=== PATIENT | female | born 1955 | race African-American/Black ===

== ENCOUNTER 2022-08-17 14:54 | Inpatient (IN) ==
[2022-08-17] MEDS ORDERED: HYDROmorphone 1 MG/1 ML SYRINGE IV STA (15:24)
[2022-08-17] MEDS ORDERED: ONDANSETRON 4 MG/2 ML VIAL IV STA (15:24)
[2022-08-17] MEDS ORDERED: AMPICILLIN/SULBACTAM 3,000 MG in SODIUM CHLORIDE 0.9% 100 ML IV STA (15:44)
[2022-08-17 16:13] LABS: Basophils % 0.1 % (0.0-0.8); Hematocrit 37.1 VOL% (35.7-47.0); Immature Granulocytes Absolute 0.22 #; Lymphocytes # 0.7 10*3/uL (1.4-4.0); Lymphocytes % 2.9 % (21.3-54.2); Mean Corpuscular HGB Conc 32.3 GM/DL (32-36); Mean Corpuscular Volume 75.9 FL (87-102); Mean Platelet Volume 10.1 FL (9.6-12.0); Monocytes # 0.8 10*3/uL (0.11-0.8); Monocytes % 3.7 % (1.7-12.7); Neutrophils % 92.3 % (38.7-73.9); Platelet Count 284 T/CUMM (130-400); Red Blood Count 4.89 MC/CUMM (3.8-5.5); Red Cell Distribution Width 13.7 % (9.3-17.3); White Blood Count 22.5 T/CUMM (4-12)
[2022-08-17 16:25] LABS: INR 1.1; PT Patient Result 12.4 SECS (10.1-12.1); Partial Thromboplastin Time 30.2 SECS (23.7-32.9)
[2022-08-17 16:33] LABS: Band Neutrophils 2 % (0-10); Hypochromia 1+; Lymphocytes 3 % (20-55); Total Cells Counted 100
[2022-08-17 16:34] LABS: Albumin 3.2 G/DL (3.4-5.0); Bilirubin,Total 5.5 MG/DL (0.20-1.00); Calcium 9.2 MG/DL (8.5-10.1); Osmolality,Calculated 277.4 MOS/KG (273-304); Platelet Estimate Adequate; Polychromasia Slight
[2022-08-17] MEDS ORDERED: AMPICILLIN/SULBACTAM 3,000 MG in SODIUM CHLORIDE 0.9% 100 ML IV SCH (17:30)
[2022-08-17] MEDS ORDERED: AMPICILLIN INJ 2,000 MG in SODIUM CHLORIDE 0.9% 100 ML IV SCH (17:30)
[2022-08-17] MEDS: SODIUM CHLORIDE 0.9% 1,000 ML IV SCH (17:32)
[2022-08-17] MEDS: FAMOTIDINE 20 MG/2 ML VIAL IV SCH (18:21)
[2022-08-17] MEDS: metroNIDAZOLE INJ 500 MG/100 ML PREMIX IV SCH (20:35)
[2022-08-17] MEDS: cefTRIAXone 1,000 MG in SODIUM CHLORIDE 0.9% 100 ML IV SCH (21:58)
[2022-08-18] MEDS: MORPHINE 2 MG/1 ML SYRINGE IV PRN ×2 (00:36→10:04)
[2022-08-18] MEDS: ONDANSETRON 4 MG/2 ML VIAL IV PRN ×2 (00:41→10:16)
[2022-08-18] MEDS: metroNIDAZOLE INJ 500 MG/100 ML PREMIX IV SCH ×3 (04:00→20:55)
[2022-08-18] MEDS: SODIUM CHLORIDE 0.9% 1,000 ML IV SCH ×3 (05:00→23:12)
[2022-08-18 05:22] LABS: Basophils % 0.1 % (0.0-0.8); Hematocrit 32.7 VOL% (35.7-47.0); Hemoglobin 10.6 GM/DL (12.0-16.0); Immature Granulocytes % 0.9 %; Immature Granulocytes Absolute 0.14 #; Lymphocytes # 0.6 10*3/uL (1.4-4.0); Lymphocytes % 3.7 % (21.3-54.2); Mean Corpuscular HGB Conc 32.4 GM/DL (32-36); Mean Corpuscular Volume 75.7 FL (87-102); Mean Platelet Volume 10.6 FL (9.6-12.0); Monocytes # 0.7 10*3/uL (0.11-0.8); Monocytes % 4.5 % (1.7-12.7); Neutrophils % 90.8 % (38.7-73.9); Platelet Count 218 T/CUMM (130-400); Red Blood Count 4.32 MC/CUMM (3.8-5.5); White Blood Count 16.1 T/CUMM (4-12)
[2022-08-18 05:48] LABS: Albumin 2.9 G/DL (3.4-5.0); Calcium 9.2 MG/DL (8.5-10.1); Osmolality,Calculated 278.5 MOS/KG (273-304); Potassium 3.6 MMOL/L (3.5-5.1); Total Protein 7.3 G/DL (6.4-8.2)
[2022-08-18 05:59] LABS: Anisocytosis 1+; Band Neutrophils 8 % (0-10); Lymphocytes 6 % (20-55); Platelet Estimate Normal; Total Cells Counted 100
[2022-08-18] MEDS ORDERED: ACETAMINOPHEN 325 MG TABLET PO PRN (07:49)
[2022-08-18] MEDS: lisinopriL 20 MG TABLET PO SCH (08:58)
[2022-08-18] MEDS: amLODIPine 5 MG TABLET PO SCH (08:58)
[2022-08-18] MEDS ORDERED: INDOMETHACIN SUPP 50 MG SUPP RECTAL ONE (09:59)
[2022-08-18] MEDS ORDERED: propofoL 200 MG/20 ML VIAL IV ONE (12:22)
[2022-08-18] MEDS ORDERED: LIDOCAINE 2% 5 ML VIAL ONE (12:22)
[2022-08-18] MEDS ORDERED: SEVOFLURANE 1 UNIT/15 MINUTE INH ONE ×2 (12:22→12:56)
[2022-08-18] MEDS ORDERED: ROCURONIUM 50 MG/5 ML VIAL IV ONE (12:22)
[2022-08-18] MEDS ORDERED: fentaNYL 100 MCG/2 ML VIAL ONE (12:22)
[2022-08-18] MEDS ORDERED: SUCCINYLCHOLINE 200 MG/10 ML VIAL ONE (12:22)
[2022-08-18] MEDS: LACTATED RINGERS 1,000 ML IV SCH (12:31)
[2022-08-18] MEDS ORDERED: PHENYLEPHRINE 1 MG/10 ML SYRINGE IV ONE (12:56)
[2022-08-18] MEDS ORDERED: HYDROmorphone 1 MG/1 ML SYRINGE IV PRN ×2 (15:16)
[2022-08-18] MEDS ORDERED: KETOROLAC 15 MG/1 ML VIAL IV PRN (15:16)
[2022-08-18] MEDS: FAMOTIDINE 20 MG/2 ML VIAL IV SCH (18:32)
[2022-08-18] MEDS: cefTRIAXone 1,000 MG in SODIUM CHLORIDE 0.9% 100 ML IV SCH (22:30)
[2022-08-19] MEDS: metroNIDAZOLE INJ 500 MG/100 ML PREMIX IV SCH ×3 (04:08→21:19)
[2022-08-19] MEDS: SODIUM CHLORIDE 0.9% 1,000 ML IV SCH ×2 (06:21→09:08)
[2022-08-19 07:24] LABS: Basophils % 0.4 % (0.0-0.8); Eosinophils % 0.1 % (0.00-10.9); Hematocrit 27.6 VOL% (35.7-47.0); Immature Granulocytes % 0.6 %; Immature Granulocytes Absolute 0.05 #; Lymphocytes % 13.2 % (21.3-54.2); Mean Corpuscular HGB Conc 32.6 GM/DL (32-36); Mean Corpuscular Volume 75.8 FL (87-102); Monocytes # 0.7 10*3/uL (0.11-0.8); Monocytes % 8.4 % (1.7-12.7); Neutrophils % 77.3 % (38.7-73.9); Platelet Count 169 T/CUMM (130-400); Red Blood Count 3.64 MC/CUMM (3.8-5.5); Red Cell Distribution Width 14.2 % (9.3-17.3); White Blood Count 7.7 T/CUMM (4-12)
[2022-08-19 07:37] LABS: Albumin 2.5 G/DL (3.4-5.0); Bilirubin,Total 2.9 MG/DL (0.20-1.00); Calcium 8.6 MG/DL (8.5-10.1); Osmolality,Calculated 288.8 MOS/KG (273-304); Potassium 3.4 MMOL/L (3.5-5.1); Total Protein 6.5 G/DL (6.4-8.2)
[2022-08-19] MEDS ORDERED: POTASSIUM CHLORIDE 20 MEQ TABLET PO ONE (08:33)
[2022-08-19] MEDS: lisinopriL 20 MG TABLET PO SCH (09:06)
[2022-08-19] MEDS: amLODIPine 5 MG TABLET PO SCH (09:06)
[2022-08-19 13:55] LABS: Folate 7.28 NG/ML (5.38-24.0); Vitamin B12 806 PG/ML (211-911)
[2022-08-19 14:00] LABS: % Iron Saturation 13.9 % (18-50); Ferritin 609.7 ng/mL (8-252)
[2022-08-19] MEDS: FAMOTIDINE 20 MG/2 ML VIAL IV SCH (17:36)
[2022-08-19] MEDS: FERRIC GLUCONATE COMPLEX 125 MG in SODIUM CHLORIDE 0.9% 100 ML IV SCH (17:38)
[2022-08-19 22:13] LABS: Basophils % 0.2 % (0.0-0.8); Eosinophils % 0.2 % (0.00-10.9); Immature Granulocytes % 0.5 %; Immature Granulocytes Absolute 0.04 #; Lymphocytes # 1.3 10*3/uL (1.4-4.0); Lymphocytes % 15.7 % (21.3-54.2); Mean Platelet Volume 11.5 FL (9.6-12.0); Monocytes # 0.5 10*3/uL (0.11-0.8); Monocytes % 6.7 % (1.7-12.7); Neutrophils % 76.7 % (38.7-73.9); Platelet Count 186 T/CUMM (130-400); Red Blood Count 3.72 MC/CUMM (3.8-5.5); Red Cell Distribution Width 14.6 % (9.3-17.3)
[2022-08-19] MEDS: cefTRIAXone 1,000 MG in SODIUM CHLORIDE 0.9% 100 ML IV SCH (22:48)
[2022-08-19 23:17] LABS: Sedimentation Rate-Westergren 115 MM/HR (0-30)
[2022-08-20 04:47] LABS: Basophils % 0.4 % (0.0-0.8); Eosinophils % 0.7 % (0.00-10.9); Hematocrit 26.5 VOL% (35.7-47.0); Hemoglobin 8.5 GM/DL (12.0-16.0); Immature Granulocytes % 0.4 %; Immature Granulocytes Absolute 0.02 #; Lymphocytes # 1.3 10*3/uL (1.4-4.0); Lymphocytes % 23.4 % (21.3-54.2); Mean Corpuscular HGB Conc 32.1 GM/DL (32-36); Mean Corpuscular Volume 74.9 FL (87-102); Mean Platelet Volume 10.7 FL (9.6-12.0); Monocytes # 0.7 10*3/uL (0.11-0.8); Monocytes % 12.3 % (1.7-12.7); Neutrophils % 62.8 % (38.7-73.9); Platelet Count 162 T/CUMM (130-400); Red Blood Count 3.54 MC/CUMM (3.8-5.5); Red Cell Distribution Width 14.3 % (9.3-17.3); White Blood Count 5.6 T/CUMM (4-12)
[2022-08-20] MEDS: metroNIDAZOLE INJ 500 MG/100 ML PREMIX IV SCH ×3 (05:03→21:46)
[2022-08-20 05:04] LABS: Osmolality,Calculated 281.1 MOS/KG (273-304); Potassium 3.5 MMOL/L (3.5-5.1)
[2022-08-20] MEDS: SODIUM CHLORIDE 0.9% 1,000 ML IV SCH ×3 (05:05→17:26)
[2022-08-20] MEDS ORDERED: INDOCYANINE GREEN 25 MG VIAL IV ONE (06:30)
[2022-08-20] MEDS ORDERED: LIDOCAINE 1%/EPI INJ 20 ML VIAL ONE (06:39)
[2022-08-20] MEDS ORDERED: TISSUE ADHESIVE 1 EACH APPLICATOR TOP ONE (06:39)
[2022-08-20] MEDS ORDERED: BUPIVACAINE MPF 0.25% 10 ML VIAL ONE (06:39)
[2022-08-20] MEDS ORDERED: fentaNYL 100 MCG/2 ML VIAL ONE (06:42)
[2022-08-20] MEDS ORDERED: LIDOCAINE 2% 5 ML VIAL ONE (07:48)
[2022-08-20] MEDS ORDERED: DESFLURANE 1 UNIT/15 MINUTE INH ONE (07:48)
[2022-08-20] MEDS ORDERED: ROCURONIUM 50 MG/5 ML VIAL IV ONE (07:48)
[2022-08-20] MEDS ORDERED: PHENYLEPHRINE 1 MG/10 ML SYRINGE IV ONE (07:48)
[2022-08-20] MEDS ORDERED: propofoL 200 MG/20 ML VIAL IV ONE (07:48)
[2022-08-20] MEDS: LACTATED RINGERS 1,000 ML IV SCH (07:57)
[2022-08-20] MEDS ORDERED: NEOSTIGMINE 10 MG/10 ML VIAL ONE (08:09)
[2022-08-20] MEDS ORDERED: GLYCOPYRROLATE 0.4 MG/2 ML VIAL ONE (08:09)
[2022-08-20] MEDS ORDERED: ONDANSETRON 4 MG/2 ML VIAL IV PRN (08:18)
[2022-08-20] MEDS ORDERED: MEPERIDINE 25 MG/1 ML VIAL IV PRN (08:18)
[2022-08-20] MEDS ORDERED: HYDROmorphone 1 MG/1 ML SYRINGE IV PRN (08:18)
[2022-08-20] MEDS ORDERED: LACTATED RINGERS 1,000 ML IV SCH (09:00)
[2022-08-20] MEDS: FERRIC GLUCONATE COMPLEX 125 MG in SODIUM CHLORIDE 0.9% 100 ML IV SCH (09:06)
[2022-08-20] MEDS: FAMOTIDINE 20 MG/2 ML VIAL IV SCH (17:22)
[2022-08-20] MEDS: cefTRIAXone 1,000 MG in SODIUM CHLORIDE 0.9% 100 ML IV SCH (23:49)
[2022-08-21] MEDS: SODIUM CHLORIDE 0.9% 1,000 ML IV SCH ×2 (04:30→14:05)
[2022-08-21] MEDS: metroNIDAZOLE INJ 500 MG/100 ML PREMIX IV SCH ×2 (04:41→14:05)
[2022-08-21 06:06] LABS: Basophils % 0.3 % (0.0-0.8); Eosinophils % 0.3 % (0.00-10.9); Hematocrit 26.2 VOL% (35.7-47.0); Hemoglobin 8.4 GM/DL (12.0-16.0); Immature Granulocytes % 0.7 %; Immature Granulocytes Absolute 0.04 #; Lymphocytes # 1.2 10*3/uL (1.4-4.0); Lymphocytes % 20.9 % (21.3-54.2); Mean Corpuscular HGB Conc 32.1 GM/DL (32-36); Mean Corpuscular Volume 74.2 FL (87-102); Monocytes # 0.6 10*3/uL (0.11-0.8); Monocytes % 10.1 % (1.7-12.7); Neutrophils % 67.7 % (38.7-73.9); Platelet Count 192 T/CUMM (130-400); Red Blood Count 3.53 MC/CUMM (3.8-5.5); Red Cell Distribution Width 14.3 % (9.3-17.3); White Blood Count 5.7 T/CUMM (4-12)
[2022-08-21 06:43] LABS: Calcium 8.3 MG/DL (8.5-10.1); Potassium 3.3 MMOL/L (3.5-5.1)
[2022-08-21] MEDS ORDERED: POTASSIUM CHLORIDE 20 MEQ TABLET PO ONE (09:00)
[2022-08-21] MEDS ORDERED: lisinopriL 20 MG TABLET PO SCH (09:00)
[2022-08-21] MEDS: FERRIC GLUCONATE COMPLEX 125 MG in SODIUM CHLORIDE 0.9% 100 ML IV SCH (09:23)
[2022-08-21] MEDS: amLODIPine 5 MG TABLET PO SCH (09:24)
[2022-08-21 10:13] LABS: Hemoglobin A1 (Alkaline) 67.3 % (96.5-98.5); Hemoglobin A2 (Alkaline) 2.8 % (1.5-3.5)
[2022-08-21 10:14] LABS: Hemoglobin S (Alkaline) 29.9 %
[2022-08-21 12:03] VITALS: BP 133/81
== END 2022-08-21 12:12 | disposition home or self-care (01) | DRG 418 ==
LOC: EDBD → EDUNIT# → N.ED 14:54 → N.EDINP 16:40 → SUATTDRO 16:40 → N.2E 17:30
PROVIDERS: ADMIT Internal Medicine; ATTEND Hospitalist
PROC: ERCPWSP (ICD-10-PCS; 2022-08-18 13:05)